=== PATIENT | male | born 1970 | race African-American/Black ===

== ENCOUNTER 2016-04-06 17:14 | Emergency (ER) | payer OTHER ==
[~2016-04-06] VITALS: Ht 167.6 cm; Wt 74.0 kg
[2016-04-06 17:31] VITALS: TEMP 36.8; Ht 167.6 cm; Wt 74.0 kg
[2016-04-06] MEDS ORDERED: SODIUM CHLORIDE 0.9% 1000ML 1,000 ML IV STA (17:38)
[2016-04-06] MEDS ORDERED: FLUO20CA35 PO (17:45)
[2016-04-06] MEDS ORDERED: ISN300 PO (17:45)
[2016-04-06] MEDS ORDERED: AMLO-114 PO (17:45)
[2016-04-06] MEDS ORDERED: ERGO1CAP41 PO (17:45)
[2016-04-06] MEDS ORDERED: BUSP30TA2 PO (17:45)
[2016-04-06] MEDS ORDERED: PYRI1TAB40 PO (17:45)
[2016-04-06] MEDS ORDERED: LISI20TA3 PO (17:45)
[2016-04-06] MEDS ORDERED: HYDR50CA2 PO (17:45)
[2016-04-06] MEDS ORDERED: DPKEC500 PO (17:45)
[2016-04-06] MEDS ORDERED: HYDR25TA4 PO (17:45)
--- NOTE | 2016-04-06 18:06 | DIAGNOSTIC IMAGING REPORT ---
CHEST ONE VIEW PORTABLE CLINICAL HISTORY: Seizure. COMPARISON STUDY: No previous studies for comparison. FINDINGS: No pneumothorax or pleural effusion is present. No consolidation is present. A 1 cm nodular density projects over the left lower lung. Cardiac size is normal. Mediastinal contours are unremarkable. There is no evidence of pulmonary edema. IMPRESSION: 1. No acute cardiopulmonary findings. 2. 1 cm nodular density which projects over the left lower lung. This likely reflects a nipple shadow. Follow-up nonemergent PA and shallow oblique radiographs of the chest with nipple markers are recommended. Electronically signed by: David Orellana M.D. 04/06/2016 6:04 PM Dictated Date/Time: 04/06/2016 6:02 PM
[2016-04-06 18:29] VITALS: O2SAT 95
[2016-04-06 18:35] LABS: BASO % 0.5 %; BASO ABS # 0.03 K/uL (0-0.2); COMPLETE YES; EOS % 0.3 %; HEMATOCRIT 41.3 % (42-52); IG% 0.2 %; LYMPH % 28.5 %; LYMPH ABS # 1.87 K/uL (1.2-3.4); MEAN CELL VOLUME 86.4 fL (80-100); MEAN CORPUSCULAR HEMOGLOBIN 29.9 pg (25-34); MEAN CORPUSCULAR HGB CONC 34.6 g/dl (32-36); MEAN PLATELET VOLUME 9.2 fL (7.4-10.4); MONO % 7.3 %; NEUT % 63.2 %; PLATELET COUNT 321 K/uL (130-400); RED BLOOD COUNT 4.78 M/uL (4.7-6.1); WHITE BLOOD COUNT 6.55 K/uL (4.8-10.8)
[2016-04-06 18:47] LABS: INR 1.1 (0.9-1.1); PARTIAL THROMBOPLASTIN RATIO 1.2; PROTHROMBIN TIME (PATIENT) 11.6 SECONDS (9.0-12.0)
[2016-04-06 18:53] LABS: BUN/CREATININE RATIO 12.5 (10-20); CREATININE 1.1 mg/dl (0.60-1.40); MAGNESIUM 2.1 mg/dl (1.8-2.4)
[2016-04-06 19:03] LABS: PHOSPHORUS 2.3 mg/dl (2.5-4.9); THYROID STIMULATING HORMONE 0.476 uIu/ml (0.300-4.500)
--- NOTE | 2016-04-06 20:05 | DIAGNOSTIC IMAGING REPORT ---
CT OF THE HEAD WITHOUT CONTRAST CLINICAL HISTORY: Fall. Seizure. COMPARISON STUDY: No previous studies for comparison. TECHNIQUE: Helical axial images of the head were obtained without IV contrast. Automated exposure control was utilized for the study. FINDINGS: No acute intracranial hemorrhage, midline shift or mass effect is present. Brain volume is normal. Ventricular system is normal. The basilar cisterns are patent. Ambriz-white differentiation is maintained. There are no findings to suggest acute dural sinus thrombosis or acute territorial infarct. There is mild bilateral basal ganglia calcification. There is no calvarial fracture. IMPRESSION: 1. No acute intracranial findings. 2. No calvarial fracture. Electronically signed by: David Orellana M.D. 04/06/2016 8:03 PM Dictated Date/Time: 04/06/2016 8:02 PM
--- NOTE | 2016-04-06 20:10 | DIAGNOSTIC IMAGING REPORT ---
MAXILLOFACIAL CT WITHOUT CONTRAST CLINICAL HISTORY: Fall. Seizure. COMPARISON STUDY: None. TECHNIQUE: A maxillofacial CT was performed without IV contrast. Coronal and sagittal reformats were viewed. FINDINGS: No acute facial fracture is identified. Globes are intact. There is no retrobulbar hematoma. Alignment of the temporomandibular joints is anatomic. The cervical spine CT will be reported separately. IMPRESSION: No acute facial fracture. Electronically signed by: David Orellana M.D. 04/06/2016 8:08 PM Dictated Date/Time: 04/06/2016 8:05 PM
--- NOTE | 2016-04-06 20:14 | DIAGNOSTIC IMAGING REPORT ---
CT OF THE CERVICAL SPINE WITHOUT CONTRAST CLINICAL HISTORY: Fall. COMPARISON STUDY: No previous studies for comparison. TECHNIQUE: Helical axial images of the cervical spine were obtained without IV contrast. Sagittal and coronal reconstructions were viewed. FINDINGS: Alignment of the cervical spine is anatomic. Vertebral body heights are maintained. There is no acute fracture. Mild multilevel degenerative disc disease and facet arthrosis is present. There is no prevertebral edema or pneumothorax within visualized portions of the lung apices. Craniocervical junction is intact. IMPRESSION: No acute cervical spine fracture or subluxation. Electronically signed by: David Orellana M.D. 04/06/2016 8:11 PM Dictated Date/Time: 04/06/2016 8:09 PM
[2016-04-06 20:31] LABS: URINE APPEARANCE CLEAR (CLEAR); URINE BILIRUBIN NEG (NEG); URINE COLOR YELLOW; URINE NITRITE NEG (NEG); UROBILINOGEN NEG (NEG)
[2016-04-06 20:40] LABS: MANUAL MICROSCOPIC REQUIRED? NO; REVIEW REQ? NO
[2016-04-06] MEDS ORDERED: DIVALPROEX 500 MG EXTENDED RELEASE TAB PO ONE (20:45)
[2016-04-06 21:41] VITALS: BP 123/81; PULSE 67; O2SAT 100
--- NOTE | 2016-04-06 22:21 | EMERGENCY ROOM VISIT NOTE ---
History Report prepared by Hayibderek: Alessia Beasley Under the Supervision of: Dr. Naveen Valencia M.D. First contact with patient: 17:38 Chief Complaint: SEIZURE Stated Complaint: SEIZURE Nursing Triage Summary: Pt brought in via ambulance ALS. Pt is an inmate at [facility]. Pt has a seizure disorder. EMS reported the intermediate medical staff reported that the pt had 3 seizures today. During the last seizure the pt was standing and had a seizure. The pt hit his face off of the exam table. EMS reported that the pt had blood in his mouth. The pt reported that his nose, lip and chipped a tooth. History of Present Illness The patient is a 45 year old male who presents to the Emergency Room via ALS from [facility] to be evaluated for multiple seizure-like episodes throughout the day today. The patient does have a history of a seizure disorder. Today, he had 3 episodes at the intermediate where he is an inmate where he stares off into space and blinks. He is not responsive during the episodes. During one of the episodes, he fell and hit his face on the ground. He notes that he lost consciousness during the episode. Upon arrival to the ER, he continued to have intermittent episodes of staring off into space and not responding. The patient notes that during the seizure-like episodes, he feels disoriented, especially in terms of his vision. Currently he states that his facial pain from the fall is not as bad. The patient has had an EEG performed but the timeframe is unspecified. The guards did witness the episodes - he was not incontinent of urine, and he did not bite his tongue. The patient has a history of seizure disorder, but he is not sure the specific type of seizures he has. He has been on Depakote years ago but he states he was on it for anxiety and not seizures. He is not currently on Depakote because it did not help his anxiety. When he was diagnosed with seizures, he was worked up at [facility] by neurology. He describes his seizures today as the worst seizures he has ever had , as he has never blacked out before. Pt denies fevers, chills, diaphoresis, visual changes, neck pain, chest pain, breathing difficulties, nausea, vomiting , abdominal pain, back pain, melena, hematochezia, urinary symptoms, numbness, weakness, lymphadenopathy, rash, or other complaints. Source of History: patient, other (intermediate guards) Onset: today Position: other (Global) Quality: other (seizure-like activity) Timing: other (episodic) Associated Symptoms: + LOC Review of Systems See HPI for pertinent positives and negatives. A total of ten systems were reviewed and were otherwise negative. Past Medical & Surgical Medical Problems: (1) Anxiety (2) Seizure disorder Family History No pertinent family history stated. Social History Smoking Status: Former Smoker Housing Status: other ([facility]) Current/Historical Medications Scheduled Amlodipine (Norvasc), 10 MG PO DAILY Buspirone Hcl (Buspirone Hcl), 15 TAB PO BID Divalproex Sodium (Divalproex Sodium Dr), 500 MG PO BID Ergocalciferol (Vitamin D 27710 Unit), 1 TAB PO DAILY Fluoxetine (Prozac), 20 MG PO DAILY Hydrochlorothiazide (Hctz), 25 MG PO DAILY Hydroxyzine Pamoate (Vistaril), 50 MG PO BID Isoniazid (Isoniazid), 300 MG PO QAM Pyridoxine HCl (Vitamin B6), 50 MG PO QAM Allergies Coded Allergies: No Known Allergies (Unverified , 04/06/16) Physical Exam Vital Signs Date Time Temp Pulse Resp B/P Pulse Ox O2 Delivery O2 Flow Rate FiO2 04/06/16 21:41 67 18 123/81 100 04/06/16 20:00 62 16 125/81 99 Room Air 04/06/16 18:29 95 Room Air 04/06/16 18:26 96 Room Air 04/06/16 17:31 36.8 64 18 122/84 95 Room Air Physical Exam GENERAL: Awake, alert, well appearing, no distress HENT: Normocephalic, atraumatic. TM's normal. Oropharynx unremarkable. EYES: PERRL. EOMI. Normal conjunctiva. Sclera non-icteric. NECK: Supple. No nuchal rigidity. FROM. No JVD or bruit. RESPIRATORY: CTA CARDIAC: RRR. No murmur. ABDOMEN: Soft, non distended. No tenderness to palpation. No rebound or guarding. No masses. RECTAL: Deferred. MUSCULOSKELETAL: Unremarkable. No edema. No discoloration. Gross motor strength symmetric. NEURO: Cranial nerves 2-12 grossly intact. Normal sensorium. No sensory or motor deficits noted. Speech normal. No pronator drift. SKIN: No rash or jaundice noted. LYMPH: No adenopathy. Medical Decision & Procedures ER Provider Diagnostic Interpretation: X ray results as stated below per my interpretation and radiologist interpretation. Other radiology results as stated below per my review and radiologist interpretation CHEST ONE VIEW PORTABLE CLINICAL HISTORY: Seizure. COMPARISON STUDY: No previous studies for comparison. FINDINGS: No pneumothorax or pleural effusion is present. No consolidation is present. A 1 cm nodular density projects over the left lower lung. Cardiac size is normal. Mediastinal contours are unremarkable. There is no evidence of pulmonary edema. IMPRESSION: 1. No acute cardiopulmonary findings. 2. 1 cm nodular density which projects over the left lower lung. This likely reflects a nipple shadow. Follow-up nonemergent PA and shallow oblique radiographs of the chest with nipple markers are recommended. Electronically signed by: David Orellana M.D. 04/06/2016 6:04 PM Dictated Date/Time: 04/06/2016 6:[address] WITHOUT CONTRAST CLINICAL HISTORY: Fall. Seizure. COMPARISON STUDY: None. TECHNIQUE: A maxillofacial CT was performed without IV contrast. Coronal and sagittal reformats were viewed. FINDINGS: No acute facial fracture is identified. Globes are intact. There is no retrobulbar hematoma. Alignment of the temporomandibular joints is anatomic. The cervical spine CT will be reported separately. IMPRESSION: No acute facial fracture. Electronically signed by: David Orellana M.D. 04/06/2016 8:08 PM Dictated Date/Time: 04/06/2016 8:[address] OF THE HEAD WITHOUT CONTRAST CLINICAL HISTORY: Fall. Seizure. COMPARISON STUDY: No previous studies for comparison. TECHNIQUE: Helical axial images of the head were obtained without IV contrast. Automated exposure control was utilized for the study. FINDINGS: No acute intracranial hemorrhage, midline shift or mass effect is present. Brain volume is normal. Ventricular system is normal. The basilar cisterns are patent. Ambriz-white differentiation is maintained. There are no findings to suggest acute dural sinus thrombosis or acute territorial infarct. There is mild bilateral basal ganglia calcification. There is no calvarial fracture. IMPRESSION: 1. No acute intracranial findings. 2. No calvarial fracture. Electronically signed by: David Orellana M.D. 04/06/2016 8:03 PM Dictated Date/Time: 04/06/2016 8:[address] OF THE CERVICAL SPINE WITHOUT CONTRAST CLINICAL HISTORY: Fall. COMPARISON STUDY: No previous studies for comparison. TECHNIQUE: Helical axial images of the cervical spine were obtained without IV contrast. Sagittal and coronal reconstructions were viewed. FINDINGS: Alignment of the cervical spine is anatomic. Vertebral body heights are maintained. There is no acute fracture. Mild multilevel degenerative disc disease and facet arthrosis is present. There is no prevertebral edema or pneumothorax within visualized portions of the lung apices. Craniocervical junction is intact. IMPRESSION: No acute cervical spine fracture or subluxation. Electronically signed by: David Orellana M.D. 04/06/2016 8:11 PM Dictated Date/Time: 04/06/2016 8:09 PM Laboratory Results 04/06/16 18:17 Red Blood Count 4.78, Mean Corpuscular Volume 86.4, Mean Corpuscular Hemoglobin 29.9, Mean Corpuscular Hemoglobin Concent 34.6, Mean Platelet Volume 9.2, Neutrophils (%) (Auto) 63.2, Lymphocytes (%) (Auto) 28.5, Monocytes (%) (Auto) 7.3, Eosinophils (%) (Auto) 0.3, Basophils (%) (Auto) 0.5, Neutrophils # (Auto) 4.14, Lymphocytes # (Auto) 1.87, Monocytes # (Auto) 0.48, Eosinophils # (Auto) 0.02, Basophils # (Auto) 0.03 04/06/16 18:17 Test 04/06/16 18:14 04/06/16 18:17 04/06/16 19:51 Bedside Glucose 101 mg/dl (70-99) White Blood Count 6.55 K/uL (4.8-10.8) Red Blood Count 4.78 M/uL (4.7-6.1) Hemoglobin 14.3 g/dL (14.0-18.0) Hematocrit 41.3 % (42-52) Mean Corpuscular Volume 86.4 fL (80-100) Mean Corpuscular Hemoglobin 29.9 pg (25-34) Mean Corpuscular Hemoglobin Concent 34.6 g/dl (32-36) Platelet Count 321 K/uL (130-400) Mean Platelet Volume 9.2 fL (7.4-10.4) Neutrophils (%) (Auto) 63.2 % Lymphocytes (%) (Auto) 28.5 % Monocytes (%) (Auto) 7.3 % Eosinophils (%) (Auto) 0.3 % Basophils (%) (Auto) 0.5 % Neutrophils # (Auto) 4.14 K/uL (1.4-6.5) Lymphocytes # (Auto) 1.87 K/uL (1.2-3.4) Monocytes # (Auto) 0.48 K/uL (0.11-0.59) Eosinophils # (Auto) 0.02 K/uL (0-0.5) Basophils # (Auto) 0.03 K/uL (0-0.2) RDW Standard Deviation 42.2 fL (36.4-46.3) RDW Coefficient of Variation 13.3 % (11.5-14.5) Immature Granulocyte % (Auto) 0.2 % Immature Granulocyte # (Auto) 0.01 K/uL (0.00-0.02) Prothrombin Time 11.6 SECONDS (9.0-12.0) Prothromb Time International Ratio 1.1 (0.9-1.1) Activated Partial Thromboplast Time 30.5 SECONDS (21.0-31.0) Partial Thromboplastin Ratio 1.2 Anion Gap 10.0 mmol/L (3-11) Est Creatinine Clear Calc Drug Dose 77.3 ml/min Estimated GFR () 94.1 Estimated GFR (Non- 81.2 BUN/Creatinine Ratio 12.5 (10-20) Calcium Level 9.0 mg/dl (8.5-10.1) Phosphorus Level 2.3 mg/dl (2.5-4.9) Magnesium Level 2.1 mg/dl (1.8-2.4) Thyroid Stimulating Hormone (TSH) 0.476 uIu/ml (0.300-4.500) Valproic Acid (Depakene) Level < 3 mcg/ml (50-100) Urine Color YELLOW Urine Appearance CLEAR (CLEAR) Urine pH 8.0 (4.5-7.5) Urine Specific [place] 1.010 (1.000-1.030) Urine Protein NEG (NEG) Urine Glucose (UA) NEG (NEG) Urine Ketones TRACE (NEG) Urine Occult Blood NEG (NEG) Urine Nitrite NEG (NEG) Urine Bilirubin NEG (NEG) Urine Urobilinogen NEG (NEG) Urine Leukocyte Esterase NEG (NEG) Laboratory results reviewed by me Medications Administered Medications (Trade) Dose Ordered Sig/Adrien Route Start Time Stop Time Status Last Admin Dose Admin Sodium Chloride (Nss 1000ml) 1,000 ml @ 999 mls/hr Q1H1M STAT IV 04/06/16 17:38 04/06/16 18:38 DC 04/06/16 17:38 999 MLS/HR Divalproex Sodium (Depakote Extended Rel Tab) 500 mg NOW ONCE PO 04/06/16 20:45 04/06/16 20:46 DC 04/06/16 20:45 500 MG ED Course 1738: Ordered NSS 1000 ml @ 999 mls/hr IV. 1819: The patient was evaluated in room C6. A complete history and physical exam was performed. 2034: I discussed the case with Dr. Estefani Blackmon Neurology. He said to restart the patient on Depakote and have the patient scheduled for an outpatient EEG. 2039: I reevaluated the patient. Discussed results and discharge instructions: He verbalized understanding and agreement. The patient is ready for discharge. 2044: Ordered Divalproex Sodium 500 mg PO. Medical Decision Prior records/ancillary studies reviewed. Patient placed in seizure precautions immediately upon arrival. Nursing notes reviewed and agree them. The patient's history was concerning for a possible seizure. Differential diagnosis: Etiologies such as breakthrough seizure, pseudoseizure, infection, hypoglycemia , electrolyte abnormalities, cardiac sources, intracerebral event, trauma, toxicologic, neurologic, as well as others were entertained. Physical examination: As above. Minimal signs of trauma. ER treatment provided: Normal saline hydration On reassessment the patient felt better. Oral Depakote 500 mg Diagnostics interpretation by me: Cardiac monitoring: The patient was placed on continuous cardiac monitoring and observed. It revealed a normal sinus rhythm without ectopy or evidence of dysrhythmia. The labs revealed a normal CBC, chemistry panel, phosphorus, magnesium, TSH, and negative Depakote level. Urinalysis negative. Imaging studies: CT scan of the head, neck, and cervical spine. Chest x-ray as above. The patient has shaking and occasional twitching episodes which have no postictal period, incontinence, or tongue biting. He has clear sense afterwards and is able to answer questions and converse. These seem to be more consistent with a pseudoseizure type of even than an actual seizure. Consultation: A consultation was placed with the neurologist, Dr. Jara. The case was discussed and diagnostics were reviewed. Since the patient was recently discontinued Depakote he felt to restart the patient and then [facility] This was recommended patient. The patient also was instructed to request his [facility] medical records as they are not available in [facility]. The patient has a history of seizures and experienced seizure-like episode. By the evaluation outlined above emergent etiologies such as status epilepticus , infection, hypoglycemia, electrolyte abnormalities, cardiac sources, intracerebral event, toxicologic, neurologic,as well as others were deemed relatively unlikely. The patient was informed about the findings as listed above. All questions were answered and he was pleased with the treatment. Return instructions were outlined and the patient was discharged in stable condition. Outpatient prescription management: Restart Depakote Referral: The patient was referred back to the [facility] for a recheck of the current condition. The chart was completed utilizing [employer] Speech voice recognition software. Grammatical errors, random word insertions, pronoun errors, and incomplete sentences are an occasional consequence of this system due to software limitations, ambient noise, and hardware issues. Any formal questions or concerns about the content, text, or information contained within the body of this dictation should be directly addressed to the physician for clarification. Consults Time Called: 2029 Consulting Physician: Dr. Jara - [facility] Returned Call: 2034 I discussed the case with him. He said to restart the patient on Depakote and have the patient scheduled for an outpatient EEG. Impression Primary Impression: Seizure-like activity Scribe Attestation The scribe's documentation has been prepared under my direction and personally reviewed by me in its entirety. I confirm that the note above accurately reflects all work, treatment, procedures, and medical decision making performed by me. Departure Information Dispostion Home / Self-Care Referrals Marycruz JOHNSON (PCP) Patient Instructions A Signature Page, My [facility] Additional Instructions Diagnosis: Seizure-like activity Diagnostic testing: CT scan of the head, face, and neck were normal. CBC, complete metabolic panel and urinalysis were normal. The patient was given 500 mg of Depakote orally. Neurology was consulted and recommended an outpatient EEG done at the [facility]. This should be coordinated through the intermediate physician. The neurologist recommends 500 mg twice daily until directed otherwise after further testing. Ibuprofen(Motrin, Advil) may be used for fever or pain. Use 600mg every six hours as needed. Take with food. Avoid using more than 2400mg in a 24 hour period. Do not use 2400mg per day for more than three consecutive days without physician direction. Prolonged inappropriate use can lead to stomach upset or ulcers. (AND/OR) Acetaminophen(Tylenol) may be used for fever or pain. Use 1000mg every six hours as needed. Avoid using more than 4000mg in a 24 hour period. Rest and drink plenty of fluids as tolerated. Continue current medications. Return to the ER for passing out, chest pain, headache, persistent vomiting, fevers, abdominal pain, chest pains, difficulty breathing, black or bloody stools, worsening of your condition, or as needed. Follow up with the [facility] upon returning back to the intermediate. Also note: A chest x-ray shows a 1 cm nodular density which projects over the left lower lung. This likely reflects a nipple shadow. Follow-up nonemergent PA and shallow oblique radiographs of the chest with nipple markers are recommended.
== END 2016-04-06 21:45 ==
LOC: C.EDC 17:17
DX: G40.901 Epilepsy, unspecified, not intractable, with status epilepticus (principal); F41.9 Anxiety disorder, unspecified; Z79.899 Other long term (current) drug therapy; Z87.891 Personal history of nicotine dependence